=== PATIENT | female | born 1955 | race American Indian/Alaskan Native ===

== ENCOUNTER 2018-10-17 13:30 | Emergency (ER) | payer SELFPAY ==
[2018-10-17 13:55] VITALS: BP 141/80
--- NOTE | 2018-10-17 14:08 | Emergency Department Report ---
Chief Complaint: Abdominal Pain Stated Complaint: GALL BLADDER PAIN Time Seen by Provider: 10/17/18 14:05 - HPI History of Present Illness: pt presents with RUQ pain that began 3 weeks ago feels like squeezing sensation mild nausea, decreased appetite no V/D still has her gallbladder no urinary sx PMHx HTN, DM no allergies to medications [facility] - Exam Vital Signs: Vital Signs 10/17/18 13:52 Temperature 98.7 F Pulse Rate 81 Respiratory 15 Rate Blood Pressure 141/80 [Left] O2 Sat by Pulse 95 Oximetry MSE screening note: Focused history and physical exam performed. Due to findings the following was ordered: UA, labs, US gallbladder ED Disposition for MSE Condition: Stable Instructions: Abdominal Pain (ED)
--- NOTE | 2018-10-17 14:47 | Ultrasound Report ---
ULTRASOUND ABDOMEN LIMITED: TECHNIQUE: Transabdominal ultrasound with color Doppler interrogation. HISTORY: right upper quadrant abdominal pain. COMPARISON: none. FINDINGS: LIVER: The liver parenchyma is slightly echogenic which could represent mild fatty change. No enlargement, focal mass or surface nodularity. BILIARY SYSTEM: Normal. PANCREAS: Normal. RIGHT KIDNEY: Normal. PROXIMAL AORTA: Normal. ASCITES: None. IMPRESSION: Mild fatty change in the liver. No significant change is demonstrated since 09/09/14.
[2018-10-17 15:27] LABS: Basophils # (Auto) 0.1 K/mm3 (0.0-0.1); Basophils % (Auto) 0.8 % (0.0-1.8); Eosinophils # (Auto) 0.1 K/mm3 (0.0-0.4); Eosinophils % (Auto) 2.3 % (0.0-4.3); Hematocrit 41.9 % (30.3-42.9); Hemoglobin 14.2 gm/dl (10.1-14.3); Lymphocytes # (Auto) 3.2 K/mm3 (1.2-5.4); Lymphocytes % (Auto) 49.1 % (13.4-35.0); Mean Corpuscular HGB Conc 34 % (30-34); Mean Corpuscular Volume 86 fl (79-97); Monocytes # (Auto) 0.6 K/mm3 (0.0-0.8); Monocytes % (Auto) 9.3 % (0.0-7.3); Platelet Count 301 K/mm3 (140-440); Red Blood Count 4.86 M/mm3 (3.65-5.03); Red Cell Distribution Width 13.8 % (13.2-15.2)
[2018-10-17 15:57] LABS: Bilirubin,Urine NEG (Negative); Blood,Urine NEG (Negative); Color,Urine Yellow (Yellow); Mucus,Urine FEW /HPF; Protein,Urine <15 mg/dL mg/dL (Negative); Urobilinogen,Urine < 2.0 mg/dL (<2.0)
[2018-10-17 16:08] LABS: Alanine Aminotransferase 12 units/L (7-56); Albumin 3.9 g/dL (3.9-5); BUN/Creatinine Ratio 19; Blood Urea Nitrogen 19 mg/dL (7-17); Calcium 9.8 mg/dL (8.4-10.2); Hemolysis Index 32
[2018-10-17] MEDS ORDERED: MORPHINE IV ONE (16:51)
[2018-10-17] MEDS ORDERED: ZOFRAN IV ONE (16:51)
--- NOTE | 2018-10-17 16:55 | Emergency Department Report ---
ED Abdominal Pain HPI - General Chief Complaint: Abdominal Pain Stated Complaint: GALL BLADDER PAIN Time Seen by Provider: 10/17/18 14:05 Source: patient Mode of arrival: Ambulatory Limitations: No Limitations - History of Present Illness Initial Comments: 63-year-old female with history of diabetes and hypertension presents to ED with right upper quadrant pain 3 weeks. Patient states pain sometimes begins in the epigastric area and wraps around underneath her right breast. Patient reports sharp pains, worse with respirations. Denies any aggravation of pain with eating. Denies nausea or vomiting. Patient reports mild shortness of breath, states the pain sometimes takes her breath away. The patient denies fever or cough. PCP: Dr Adams TREVIÑO Complaint: flank pain -: week(s) (3) Location: RUQ Radiation: epigastric, back Migration to: no migration Severity: moderate Quality: sharp Consistency: constant Improves With: nothing Worsens With: nothing Associated Symptoms: denies: nausea, vomiting, fever - Related Data Previous Rx's Medication Instructions Recorded Last Taken Type Dicyclomine [Bentyl] 20 mg PO QID PRN #20 tablet 10/17/18 Unknown Rx Naproxen [Naprosyn] 500 mg PO BID #20 tablet 10/17/18 Unknown Rx methOCARBAMOL [Robaxin TAB] 500 mg PO Q8HR PRN #20 tablet 10/17/18 Unknown Rx Allergies Allergy/AdvReac Type Severity Reaction Status Date / Time iodine AdvReac Severe Anaphylaxis Verified 10/17/18 17:30 ED Review of Systems ROS: Stated complaint: GALL BLADDER PAIN Other details as noted in HPI Comment: All other systems reviewed and negative Constitutional: denies: chills, fever Respiratory: denies: cough, shortness of breath Cardiovascular: denies: chest pain Gastrointestinal: abdominal pain. denies: nausea, vomiting Musculoskeletal: other (denies led pain or swelling) ED Past Medical Hx - Past Medical History Hx Hypertension: Yes Hx Diabetes: Yes Hx Asthma: Yes - Surgical History Past Surgical History?: No - Social History Smoking Status: Current Every Day Smoker Substance Use Type: None - Medications Home Medications: Home Medications Medication Instructions Recorded Confirmed Last Taken Type Dicyclomine [Bentyl] 20 mg PO QID PRN #20 tablet 10/17/18 Unknown Rx Naproxen [Naprosyn] 500 mg PO BID #20 tablet 10/17/18 Unknown Rx methOCARBAMOL [Robaxin TAB] 500 mg PO Q8HR PRN #20 tablet 10/17/18 Unknown Rx ED Physical Exam - General Limitations: No Limitations General appearance: alert, in no apparent distress - Head Head exam: Present: atraumatic, normocephalic - Eye Eye exam: Present: normal appearance - ENT ENT exam: Present: mucous membranes moist - Neck Neck exam: Present: normal inspection - Respiratory Respiratory exam: Present: normal lung sounds bilaterally. Absent: respiratory distress - Cardiovascular Cardiovascular Exam: Present: regular rate, normal rhythm - GI/Abdominal GI/Abdominal exam: Present: soft, tenderness (mild RUQ). Absent: distended - Extremities Exam Extremities exam: Present: normal inspection. Absent: normal capillary refill, calf tenderness - Neurological Exam Neurological exam: Present: alert, oriented X3 - Psychiatric Psychiatric exam: Present: normal affect, normal mood - Skin Skin exam: Present: warm, dry, intact, normal color ED Course Vital Signs 10/17/18 10/17/18 13:52 16:20 Temperature 98.7 F Pulse Rate 81 Respiratory 15 18 Rate Blood Pressure 141/80 [Left] O2 Sat by Pulse 95 Oximetry ED Medical Decision Making - Lab Data Result diagrams: 10/17/18 14:37 10/17/18 14:37 - Radiology Data Radiology results: report reviewed, image reviewed - Medical Decision Making - RUQ pain x 3 weeks - US neg for gallstones, only shows fatty liver - V/Q scan low probability for PE - CXR negative for infiltrate - pt now states she was moving a dresser prior to onset of pain, maybe pulled a muscle - outpt f/u advised - return precautions given - Differential Diagnosis gallstones, PE, pneumonia, chest wall pain Critical care attestation.: If time is entered above; I have spent that time in minutes in the direct care of this critically ill patient, excluding procedure time. ED Disposition Clinical Impression: Abdominal pain, Chest wall pain Disposition: DC-01 TO HOME OR SELFCARE Is pt being admited?: No Condition: Stable Instructions: Costochondritis (ED), Abdominal Pain (ED) Prescriptions: Dicyclomine [Bentyl] 20 mg PO QID PRN #20 tablet PRN Reason: abdominal pain Naproxen [Naprosyn] 500 mg PO BID #20 tablet methOCARBAMOL [Robaxin TAB] 500 mg PO Q8HR PRN #20 tablet PRN Reason: Muscle Spasm Referrals: PRIMARY CARE, [Referring] - 3-5 Days [facility] [Provider Group] - 3-5 Days Time of Disposition: 19:51
--- NOTE | 2018-10-17 18:39 | XRay Report ---
PROCEDURE: XR CHEST ROUTINE 2V HISTORY: right chest pain FINDINGS: Frontal and lateral views the chest were acquired. The heart is normal in size. The lungs a ppear clear. There is no pneumothorax. There is no consolidative pulmonary infiltrate. IMPRESSION: No active disease in the chest This document is electronically signed by Kevan Gates MD., October 17 2018 06:37:01 PM ET
--- NOTE | 2018-10-17 19:41 | Nuclear Medicine Report ---
PROCEDURE: Nuclear medicine ventilation and perfusion lung scan. TECHNIQUE: Ventilation imaging was done in the posterior projection using 20.1 mCi of xenon-133 gas. Perfusion imaging was done in multiple projections using 4.37 mCi of technetium 99m MAA. HISTORY: pleuritic pain COMPARISONS: Comparison chest radiograph 10/17/2018. FINDINGS: There is fairly homogeneous ventilation of both lungs. There is some trapping of xenon gas at both colby ng bases during the washout phase of the study. The perfusion images are also fairly homogeneous. The re are no mismatched perfusion defects identified. The scan has a very low probability of pulmonary e mbolism. IMPRESSION: Very low probability of pulmonary embolism. This document is electronically signed by Jose Guadalupe Brito MD., October 17 2018 07:40:05 PM ET
== END 2018-10-17 20:13 | disposition home or self-care (01) ==
LOC: ED 13:30
DX: R10.11 Right upper quadrant pain (principal); R07.89 Other chest pain; I10 Essential (primary) hypertension; E11.9 Type 2 diabetes mellitus without complications; J45.909 Unspecified asthma, uncomplicated
CPT/HCPCS: 36415; 71046; 76705; 78582; 80053; 81001; 83690; 85025; 96374; 96375; 99284; A9540; A9558; J2270; J2405

== ENCOUNTER 2019-01-05 08:19 | Emergency (ER) | payer SELFPAY ==
[2019-01-05 09:12] LABS: Hemoglobin 14.9 gm/dl (10.1-14.3); Mean Corpuscular HGB Conc 35 % (30-34); Mean Corpuscular Hemoglobin 30 pg (28-32); Mean Corpuscular Volume 87 fl (79-97); Platelet Count 289 K/mm3 (140-440); Red Blood Count 4.96 M/mm3 (3.65-5.03); Red Cell Distribution Width 13.9 % (13.2-15.2)
[2019-01-05 09:35] LABS: Albumin 4.5 g/dL (3.9-5); Calcium 10.7 mg/dL (8.4-10.2)
[2019-01-05 10:04] LABS: Bilirubin,Urine NEG (Negative); Blood,Urine NEG (Negative); Color,Urine Yellow (Yellow); Protein,Urine <15 mg/dL mg/dL (Negative); Urobilinogen,Urine < 2.0 mg/dL (<2.0)
[2019-01-05] MEDS ORDERED: PEPCID IV ONE (10:06)
[2019-01-05] MEDS ORDERED: CARAFATE PO ONE (10:06)
[2019-01-05] MEDS ORDERED: MORPHINE IV ONE (10:06)
--- NOTE | 2019-01-05 10:08 | Emergency Department Report ---
ED General Adult HPI - General Chief complaint: Abdominal Pain Stated complaint: FLANK PAIN Time Seen by Provider: 01/05/19 09:12 Source: patient, family, RN notes reviewed, old records reviewed Mode of arrival: Ambulatory Limitations: No Limitations - History of Present Illness Initial comments: This is a 63-year-old female. This patient is not known to this provider previously. Her past medical history includes asthma, diabetes, hypertension and chronic abdominal pain. Patient seen at this hospital September 2018, for acute on chronic epigastric and right upper quadrant pain radiating to the back, had extensive workup, including low probability nuclear medicine study, negative x- ray of the chest, an ultrasound of the right upper quadrant demonstrating a chronic fatty liver. This has been redemonstrated since 2014. Today, the patient presents to the ER with a complaint of recurrent epigastric and right upper quadrant pain, that moved to the back. The pain is present for 3 months, but worsened over the past couple days. The pain increases with eating, and decreases with rest. The patient denies DVT, pulmonary embolus risk factors. The patient currently denies headache, neck pain, fever, she denies exertional shortness of breath, endorses cough, and endorses intermittent urinary discomfort, admits to right anterior proximal lateral thigh numbness, and denies arthritis. She also indicates that the pain sometimes moves to her subcentral/sternal region. This has been going on for weeks. There is no vomiting, there is no diaphoresis, there is positive nausea, and there is no exertional shortness of breath. -: Gradual, days(s), week(s), month(s) Location: abdomen Radiation: back Quality: burning, aching Consistency: constant Improves with: rest Worsens with: eating - Related Data Previous Rx's Medication Instructions Recorded Last Taken Type Dicyclomine [Bentyl] 20 mg PO QID PRN #20 tablet 10/17/18 Unknown Rx Famotidine [Pepcid] 20 mg PO BID #30 tablet 01/05/19 Unknown Rx Allergies Allergy/AdvReac Type Severity Reaction Status Date / Time iodine AdvReac Severe Anaphylaxis Verified 01/05/19 08:20 ED Review of Systems ROS: Stated complaint: FLANK PAIN Other details as noted in HPI Constitutional: denies: fever Eyes: denies: eye discharge ENT: denies: epistaxis Respiratory: cough Cardiovascular: denies: syncope Gastrointestinal: abdominal pain, nausea Genitourinary: other Musculoskeletal: back pain Skin: denies: lesions Neurological: weakness Psychiatric: anxiety ED Past Medical Hx - Past Medical History Hx Hypertension: Yes Hx Diabetes: Yes Hx Asthma: Yes Additional medical history: GALL STONES - Surgical History Past Surgical History?: Yes Additional Surgical History: TONSILS RECTAL EYE - Social History Smoking Status: Never Smoker Substance Use Type: None - Medications Home Medications: Home Medications Medication Instructions Recorded Confirmed Last Taken Type Dicyclomine [Bentyl] 20 mg PO QID PRN #20 tablet 10/17/18 Unknown Rx Famotidine [Pepcid] 20 mg PO BID #30 tablet 01/05/19 Unknown Rx ED Physical Exam - General Limitations: No Limitations General appearance: alert, obese - Head Head exam: Present: atraumatic, normocephalic - Eye Eye exam: Present: normal appearance, EOMI - ENT ENT exam: Present: normal exam, normal orophraynx, mucous membranes moist, normal external ear exam - Neck Neck exam: Present: normal inspection, full ROM. Absent: tenderness, meningismus - Respiratory Respiratory exam: Present: normal lung sounds bilaterally. Absent: respiratory distress - Cardiovascular Cardiovascular Exam: Present: regular rate, normal rhythm, normal heart sounds. Absent: bradycardia, tachycardia, irregular rhythm, systolic murmur, diastolic murmur, rubs, gallop - GI/Abdominal GI/Abdominal exam: Present: soft. Absent: distended, tenderness, guarding, rebound, rigid, pulsatile mass - Extremities Exam Extremities exam: Present: normal inspection, full ROM, other (2+ pulses noted in the bilateral upper, lower extremities. Compartments soft. No long bony tenderness. The pelvis is stable.). Absent: pedal edema, joint swelling, calf tenderness - Back Exam Back exam: Present: normal inspection, full ROM. Absent: tenderness, CVA tenderness (R), CVA tenderness (L), paraspinal tenderness, vertebral tenderness - Neurological Exam Neurological exam: Present: alert, oriented X3, normal gait, other (Extraocular movements intact. Tongue midline. No facial droop. Facial sensation intact to light touch in the V1, V2, V3 distribution bilaterally. 5 and 5 strength in 4 extremities.. Sensation is intact to light touch in 4 extremities.). Absent: motor sensory deficit - Psychiatric Psychiatric exam: Present: anxious - Skin Skin exam: Present: warm, dry, intact, normal color. Absent: rash ED Course Vital Signs 01/05/19 01/05/19 01/05/19 08:25 09:06 09:32 Temperature 97.7 F Pulse Rate 76 68 68 Respiratory 20 20 13 Rate Blood Pressure 151/75 Blood Pressure 184/92 [Left] O2 Sat by Pulse 98 Oximetry 01/05/19 01/05/19 01/05/19 09:46 10:00 10:16 Temperature Pulse Rate 75 68 67 Respiratory 20 19 15 Rate Blood Pressure Blood Pressure [Left] O2 Sat by Pulse Oximetry 01/05/19 01/05/19 01/05/19 10:30 13:01 13:23 Temperature Pulse Rate 73 83 Respiratory 13 16 Rate Blood Pressure 160/75 Blood Pressure 139/82 [Left] O2 Sat by Pulse 97 Oximetry - Reevaluation(s) Reevaluation #1: 01/05/19 10:29 Differential diagnosis, including not limited to: GERD, gastritis, hiatal hernia, sphincter of OD dysfunction, biliary dyskinesia, fatty liver, biliary colic, renal colic, pancreatitis, acute coronary syndrome, renal colic, urinary tract infection, allodynia Assessment and plan: 63-year-old female with acute on chronic epigastric to right upper quadrant pain. She is not tachycardic, she is not hypoxic, she is low risk by well's criteria, and endorses no DVT or pulmonary embolism risk factors. Patient was seen for similar symptoms in September of this year. Had extensive workup, including low probability nuclear medicine study, x-ray of the chest which was unremarkable, and right upper quadrant ultrasound which showed a fatty liver. Laboratory studies so far do not corroborate hepatitis, acute coronary syndrome, pericarditis, or myocarditis, or pancreatitis. Unlikely that the patient will have an emergent medical condition at this time. Patient at low risk for major adverse cardiac event as per the heart score. We will treat her symptoms, obtained recurrent x-ray of the chest, right upper quadrant ultrasound, and noncontrast CT scan of the abdomen and pelvis. We will reassess once her data points have resulted. Reevaluation #2: 01/05/19 11:13 Chest x-ray negative. CT scan of the abdomen and pelvis negative. Blood pressure improved. Ultrasound pending. Reevaluation #3: 01/05/19 13:45 Right upper quadrant ultrasound negative for objectively abnormal emergent pathology. Blood pressure improved. Troponin negative 2. EKG unchanged 2, patient appears improved, resting comfortably in stretcher. As per this institution's current protocol, patient low risk by Heart score, unlikely to be acute coronary syndrome, patient at low risk for major adverse cardiac event, outpatient cardiology group will contact patient with outpatient cardiology follow-up appointment. Patient will be discharged with appropriate nonsedating medication, she'll need to follow up with outpatient GI. ED Medical Decision Making - Lab Data Result diagrams: 01/05/19 08:31 01/05/19 08:31 Vital Signs 01/05/19 08:25 Temperature 97.7 F Pulse Rate 76 Respiratory 20 Rate Blood Pressure 184/92 [Left] O2 Sat by Pulse 98 Oximetry Lab Results 01/05/19 01/05/19 01/05/19 Range/Units 08:31 08:31 08:31 WBC 5.9 (4.5-11.0) K/mm3 RBC 4.96 (3.65-5.03) M/mm3 Hgb 14.9 H (10.1-14.3) gm/dl Hct 43.0 H (30.3-42.9) % MCV 87 (79-97) fl MCH 30 (28-32) pg MCHC 35 H (30-34) % RDW 13.9 (13.2-15.2) % Plt Count 289 (140-440) K/mm3 Lymph % (Auto) Aerial Tram Operator Seg Neutrophils % Aerial Tram Operator Sodium 136 L (137-145) mmol/L Potassium 3.7 (3.6-5.0) mmol/L Chloride 94.1 L (98-107) mmol/L Carbon Dioxide 29 (22-30) mmol/L Anion Gap 17 mmol/L BUN 20 H (7-17) mg/dL Creatinine 1.2 (0.7-1.2) mg/dL Estimated GFR 55 ml/min BUN/Creatinine Ratio 17 % Glucose 149 H (65-100) mg/dL Calcium 10.7 H (8.4-10.2) mg/dL Magnesium 2.10 (1.7-2.3) mg/dL Total Bilirubin 0.30 (0.1-1.2) mg/dL AST 14 (5-40) units/L ALT 13 (7-56) units/L Alkaline Phosphatase 116 (35-129) units/L Total Creatine Kinase 124 (30-135) units/L Troponin T < 0.010 (0.00-0.029) ng/mL Total Protein 8.1 (6.3-8.2) g/dL Albumin 4.5 (3.9-5) g/dL Albumin/Globulin Ratio 1.3 % Lipase (13-60) units/L Urine Color (Yellow) Urine Turbidity (Clear) Urine pH (5.0-7.0) Ur Specific [place] (1.003-1.030) Urine Protein (Negative) mg/dL Urine Glucose (UA) (Negative) mg/dL Urine Ketones (Negative) mg/dL Urine Blood (Negative) Urine Nitrite (Negative) Urine Bilirubin (Negative) Urine Urobilinogen (<2.0) mg/dL Ur Leukocyte Esterase (Negative) Urine WBC (Auto) (0.0-6.0) /HPF Urine RBC (Auto) (0.0-6.0) /HPF U Epithel Cells (Auto) (0-13.0) /HPF 01/05/19 01/05/19 Range/Units 08:31 09:37 WBC (4.5-11.0) K/mm3 RBC (3.65-5.03) M/mm3 Hgb (10.1-14.3) gm/dl Hct (30.3-42.9) % MCV (79-97) fl MCH (28-32) pg MCHC (30-34) % RDW (13.2-15.2) % Plt Count (140-440) K/mm3 Lymph % (Auto) Seg Neutrophils % Sodium (137-145) mmol/L Potassium (3.6-5.0) mmol/L Chloride (98-107) mmol/L Carbon Dioxide (22-30) mmol/L Anion Gap mmol/L BUN (7-17) mg/dL Creatinine (0.7-1.2) mg/dL Estimated GFR ml/min BUN/Creatinine Ratio % Glucose (65-100) mg/dL Calcium (8.4-10.2) mg/dL Magnesium (1.7-2.3) mg/dL Total Bilirubin (0.1-1.2) mg/dL AST (5-40) units/L ALT (7-56) units/L Alkaline Phosphatase (35-129) units/L Total Creatine Kinase (30-135) units/L Troponin T (0.00-0.029) ng/mL Total Protein (6.3-8.2) g/dL Albumin (3.9-5) g/dL Albumin/Globulin Ratio % Lipase 29 (13-60) units/L Urine Color Yellow (Yellow) Urine Turbidity Clear (Clear) Urine pH 6.0 (5.0-7.0) Ur Specific [place] 1.019 (1.003-1.030) Urine Protein <15 mg/dl (Negative) mg/dL Urine Glucose (UA) Neg (Negative) mg/dL Urine Ketones Neg (Negative) mg/dL Urine Blood Neg (Negative) Urine Nitrite Neg (Negative) Urine Bilirubin Neg (Negative) Urine Urobilinogen < 2.0 (<2.0) mg/dL Ur Leukocyte Esterase Neg (Negative) Urine WBC (Auto) 1.0 (0.0-6.0) /HPF Urine RBC (Auto) 1.0 (0.0-6.0) /HPF U Epithel Cells (Auto) 6.0 (0-13.0) /HPF - EKG Data -: EKG Interpreted by Nd EKG shows normal: sinus rhythm Rate: normal - EKG Data When compared to previous EKG there are: previous EKG unavailable 01/05/19 10:31 This is a normal sinus, 67 bpm, normal axis, VA interval prolonged, poor R-wave progression, abnormal EKG, no prior for comparison, the EKG is not consistent with ST elevation myocardial infarction. - Radiology Data Radiology results: pending, report reviewed, image reviewed Critical care attestation.: If time is entered above; I have spent that time in minutes in the direct care of this critically ill patient, excluding procedure time. ED Disposition Clinical Impression: Chronic RUQ pain Disposition: DC-01 TO HOME OR SELFCARE Is pt being admited?: No Does the pt Need Aspirin: No Condition: Stable Instructions: Abdominal Pain (ED) Additional Instructions: Avoid consumption of Motrin, ibuprofen, Naprosyn, Aleve. Avoid consumption of alcohol, and heavy, spicy foods. Follow-up with her practice representative within the next 2 weeks. Follow up with a energy auditor within the next 3-5 days. Local cardiology group will be contacting the patient within the next 48 hours to arrange close outpati ent follow-up for patient's epigastric discomfort. Return to the emergency room right away with new, worsening or different symptoms, or symptoms not present on the initial emergency room evaluation. Referrals: EDILMA RAE MD [Primary Care Provider] - 3-5 Days [facility] [Provider Group] - 3-5 Days [facility] [Provider Group] - 3-5 Days
[2019-01-05 10:34] LABS: Basophils % (Manual) 0 % (0.0-1.8); Total Cells Counted 100
[2019-01-05 10:35] LABS: Platelet Estimate Consistent w Auto; RBC Morphology Normal
--- NOTE | 2019-01-05 10:59 | XRay Report ---
CHEST 2 VIEWS INDICATION / CLINICAL INFORMATION: Epigastric and back pain for over one month. COMPARISON: None available. FINDINGS: SUPPORT DEVICES: None. HEART / MEDIASTINUM: The heart size and pulmonary vasculature are normal. There is mild aortic tortuo sity without aneurysm. LUNGS / PLEURA: No significant pulmonary or pleural abnormality. No pneumothorax. ADDITIONAL FINDINGS: No significant additional findings. IMPRESSION: No acute findings. Signer Name: Caleb Mcdonald MD Signed: 01/05/2019 10:54 AM Workstation Name: [id number]
--- NOTE | 2019-01-05 11:10 | Cat Scan Report ---
CT ABDOMEN AND PELVIS WITHOUT CONTRAST HISTORY: Right upper quadrant pain radiating to back COMPARISON: None. TECHNIQUE: Axial CT images were obtained through the abdomen and pelvis without IV contrast. Sagittal and coronal reformatted images. All CT scans at this location are performed using CT dose reduction for ALARA by means of automated exposure control. FINDINGS: CT ABDOMEN: Lung Bases: Clear. Liver: No significant abnormality. Biliary: No significant abnormality. Spleen: No significant abnormality. Unenlarged. Pancreas: No significant abnormality. Adrenals: No significant abnormality. Kidneys: No significant abnormality. Lymphatics: No lymphadenopathy. Vasculature: No significant abnormality. Bowel/Peritoneum: No significant abnormality. No free air. No free fluid. CT PELVIS: : No significant abnormality. Osseous Structures: No significant abnormality. Additional Findings: None IMPRESSION: No significant abnormality. Signer Name: Joseph López Jr, MD Signed: 01/05/2019 11:05 AM Workstation Name: [id number]
--- NOTE | 2019-01-05 13:16 | Ultrasound Report ---
ULTRASOUND ABDOMEN, LIMITED (RIGHT UPPER QUADRANT) INDICATION / CLINICAL INFORMATION: ruq pain rad to back. COMPARISON: Ultrasound dated 10/17/18. CT dated 01/05/19 FINDINGS: PANCREAS: Visualized portion shows no significant abnormality. LIVER: Liver appears heterogeneous and echogenic characteristic of any infiltration. GALLBLADDER: No significant abnormality. BILE DUCTS: No significant abnormality. Common bile duct measures 2.4 mm. FREE FLUID: None. ADDITIONAL FINDINGS: Visualized portions of the right kidney appear normal. IMPRESSION: 1. No acute sonographic abnormality of the right upper quadrant. 2. Possible mild hepatic steatosis. Signer Name: Brandi Aldridge MD Signed: 01/05/2019 1:11 PM Workstation Name: [id number]
[2019-01-05 13:26] VITALS: BP 139/82
[2019-01-05] MEDS ORDERED: BENTYL PO ONE (14:38)
[2019-01-05] MEDS ORDERED: BENTYL ONE (14:39)
== END 2019-01-05 14:41 | disposition home or self-care (01) ==
LOC: ED 08:19
DX: R10.11 Right upper quadrant pain (principal); G89.29 Other chronic pain; I10 Essential (primary) hypertension; E11.9 Type 2 diabetes mellitus without complications; J45.909 Unspecified asthma, uncomplicated; Z91.09 Other allergy status, other than to drugs and biological substances
CPT/HCPCS: 36415; 71046; 74176; 76705; 80053; 81001; 82550; 83690; 83735; 84484; 85007; 85025; 93005; 93010; 99284; J2270

== ENCOUNTER 2019-06-07 10:54 | Emergency (ER) | payer SELFPAY ==
[2019-06-07 11:10] VITALS: BP 109/82
[2019-06-07] MEDS ORDERED: PANTOPRAZOLE 40 MG TAB PO ONE (11:52)
[2019-06-07] MEDS ORDERED: LIDOCAINE VISCOUS 2% 15 ML ORAL LIQD PO ONE (11:53)
[2019-06-07] MEDS ORDERED: ALUM-MAG HYDROXIDE-SIMETHICONE 200-200-20MG/5ML ORAL LIQD 30 ML PO ONE (11:53)
--- NOTE | 2019-06-07 11:56 | Emergency Department Report ---
HPI - General Chief Complaint: Abdominal Pain Time Seen by Provider: 06/07/19 11:32 - HPI HPI: Room 9 The patient is a 64-year-old female presenting with a chief complaint of abdominal pain. The patient states she's had abdominal pain intermittently for the past 9 months. Patient states she's been to the hospital multiple times but has not yet been given a diagnosis. The patient states she is having trouble getting authorization/coverage to see a loft rigger perform an endoscopy and/or colonoscopy. The patient again came to the emergency room today for this abdominal pain which she describes as stabbing in nature and located in the ri t upper quadrant, midepigastric and right lower quadrants. Patient is to nausea but denies vomiting or diarrhea. Patient notices an increase in pain after eating. Location: [See above] Duration: [See above] Quality: [See above] Severity: [See above] Timing: [See above] Context: [See above] Modifying factors: [See above] Associated signs and symptoms: [see above] ED Past Medical Hx - Past Medical History Hx Hypertension: Yes Hx Diabetes: Yes Hx Asthma: Yes Additional medical history: GALL STONES - Surgical History Additional Surgical History: TONSILS RECTAL EYE - Family History Family history: no significant - Social History Smoking Status: Current Every Day Smoker (1/2 pack per day) Substance Use Type: Alcohol (occasional) - Medications Home Medications: Home Medications Medication Instructions Recorded Confirmed Last Taken Type Dicyclomine [Bentyl] 20 mg PO QID PRN #20 tablet 10/17/18 Unknown Rx Famotidine [Pepcid] 20 mg PO BID #30 tablet 01/05/19 Unknown Rx HYDROcodone/APAP 5-325 [[place] 1 - 2 each PO Q6HR PRN #20 tablet 06/07/19 Unkn own Rx 5/325] Pantoprazole [Protonix] 40 mg PO BID #60 tablet 06/07/19 Unknown Rx ED Review of Systems ROS: Stated complaint: GI STOMACH PAIN/DOC ORDERED Other details as noted in HPI Constitutional: no symptoms reported Eyes: denies: eye pain Respiratory: no symptoms reported Cardiovascular: denies: chest pain Endocrine: no symptoms reported Gastrointestinal: abdominal pain, nausea. denies: vomiting Genitourinary: denies: dysuria Musculoskeletal: back pain Neurological: denies: headache Physical Exam - Physical Exam Vital Signs: Vital Signs 06/07/19 11:06 Temperature 98.2 F Pulse Rate 88 Respiratory 20 Rate Blood Pressure 109/82 O2 Sat by Pulse 99 Oximetry Physical Exam: GENERAL: The patient is well-developed well-nourished female lying on stretcher appearing to be in mild discomfort. [] HEENT: Normocephalic. Atraumatic. Extraocular motions are intact. Patient has moist mucous membranes. NECK: Supple. Trachea midline CHEST/LUNGS: Clear to auscultation. There is no respiratory distress noted. HEART/CARDIOVASCULAR: Regular. There is no tachycardia. There is no gallop rub or murmur. ABDOMEN: Abdomen is soft, with mild discomfort to palpation in the right upper quadrant, right lower quadrant and midepigastric region. There is no rebound or guarding. Patient has normal bowel sounds. There is no abdominal distention. SKIN: There is no rash. There is no edema. There is no diaphoresis. NEURO: The patient is awake, alert, and oriented. The patient is cooperative. The patient has normal speech MUSCULOSKELETAL: There is no evidence of acute injury. ED Course Vital Signs 06/07/19 11:06 Temperature 98.2 F Pulse Rate 88 Respiratory 20 Rate Blood Pressure 109/82 O2 Sat by Pulse 99 Oximetry ED Medical Decision Making - Lab Data Result diagrams: 06/07/19 12:45 06/07/19 12:45 Laboratory Tests 06/07/19 06/07/19 06/07/19 12:34 12:45 12:45 WBC 6.5 RBC 5.00 Hgb 14.7 H Hct 42.1 MCV 84 MCH 30 MCHC 35 H RDW 14.2 Plt Count 305 Lymph % (Auto) 44.8 H [place] % (Auto) 7.1 Eos % (Auto) 1.4 Baso % (Auto) 0.5 Lymph # 2.9 [place] # 0.5 Eos # 0.1 Baso # 0.0 Seg Neutrophils % 46.2 Seg Neutrophils # 3.0 Sodium 140 Potassium 3.5 L Chloride 99.3 Carbon Dioxide 27 Anion Gap 17 BUN 17 Creatinine 0.9 Estimated GFR > 60 BUN/Creatinine Ratio 19 Glucose 83 Calcium 9.8 Total Bilirubin 0.30 AST 16 ALT 13 Alkaline Phosphatase 110 Total Protein 8.3 H Albumin 4.5 Albumin/Globulin Ratio 1.2 Lipase Urine Color Straw Urine Turbidity Clear Urine pH 8.0 H Ur Specific [place] 1.014 Urine Protein <15 mg/dl Urine Glucose (UA) Neg Urine Ketones Neg Urine Blood Neg Urine Nitrite Neg Urine Bilirubin Neg Urine Urobilinogen < 2.0 Ur Leukocyte Esterase Mod Urine WBC (Auto) 1.0 Urine RBC (Auto) 4.0 U Epithel Cells (Auto) 7.0 Urine Mucus Few 06/07/19 12:45 WBC RBC Hgb Hct MCV MCH MCHC RDW Plt Count Lymph % (Auto) [place] % (Auto) Eos % (Auto) Baso % (Auto) Lymph # [place] # Eos # Baso # Seg Neutrophils % Seg Neutrophils # Sodium Potassium Chloride Carbon Dioxide Anion Gap BUN Creatinine Estimated GFR BUN/Creatinine Ratio Glucose Calcium Total Bilirubin AST ALT Alkaline Phosphatase Total Protein Albumin Albumin/Globulin Ratio Lipase 21 Urine Color Urine Turbidity Urine pH Ur Specific [place] Urine Protein Urine Glucose (UA) Urine Ketones Urine Blood Urine Nitrite Urine Bilirubin Urine Urobilinogen Ur Leukocyte Esterase Urine WBC (Auto) Urine RBC (Auto) U Epithel Cells (Auto) Urine Mucus - Radiology Data Radiology results: report reviewed (CT abdomen and pelvis), image reviewed (CT abdomen and pelvis) [address] [address] Cat Scan Report Signed Patient: FRANK PETTY MR#: [id number] : 1955 Acct:[id number] Age/Sex: 64 / F ADM Date: 06/07/19 Loc: ED Attending Dr: Ordering Physician: FRANSICO SCHWARZ MD Date of Service: 06/07/19 Procedure(s): CT abdomen pelvis wo con Accession Number(s): [id number] cc: FRANSICO SCHWARZ MD CT ABDOMEN AND PELVIS WITHOUT CONTRAST HISTORY: right-sided abdominal pain. COMPARISON: CT abdomen/pelvis from 01/05/2019 TECHNIQUE: CT images of the abdomen and pelvis were obtained without administration of intravenous contrast. All CT scans at this location are performed using CT dose reduction for ALARA by means of automated exposure control. FINDINGS: Lungs/bones: Lung bases are clear. 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 Abdomen/pelvis: There is no radiopaque urinary stone disease, mass, cyst, or hydronephrosis. No ureteral stone. Likewise no bladder stone identified. The liver, gallbladder, spleen, pancreas, and proximal GI tract appear unremarkable. There is stable mild bilateral adrenal thickening/nodularity. The urinary bladder is unremarkable. Uterus is normal. No significant pelvic free fluid identified. There is colonic diverticulosis with no acute inflammatory change identified. The appendix is normal. Terminal ileum appears unremarkable as well. IMPRESSION: 1. No acute abnormality identified. Signer Name: John Lopez MD Signed: 06/07/2019 12:38 PM Workstation Name: [id number] Transcribed By: GIANNA Dictated By: John Lopez MD Electronically Authenticated By: John Lopez MD Signed Date/Time: 06/07/19 1238 DD/ 1235 TD/TT: - Differential Diagnosis peptic ulcer disease, cholelithiasis, gastritis Critical care attestation.: If time is entered above; I have spent that time in minutes in the direct care of this critically ill patient, excluding procedure time. ED Disposition Clinical Impression: Abdominal pain Disposition: DC- TO HOME OR SELFCARE Is pt being admited?: No Does the pt Need Aspirin: No Condition: Stable Instructions: Abdominal Pain (ED) Additional Instructions: Return to the emergency department should you develop worsening symptoms, inability to tolerate food or liquids, high fever or any other concerns Prescriptions: HYDROcodone/APAP 5-325 [[place] 5/325] 1 - 2 each PO Q6HR PRN #20 tablet PRN Reason: Pain Pantoprazole [Protonix] 40 mg PO BID #60 tablet Referrals: DOREEN SMITH MD [Staff Physician] - [facility] (Dr. Smith is a loft rigger. Please follow-up with him for further evaluation) Time of Disposition: 14:25
--- NOTE | 2019-06-07 12:42 | Cat Scan Report ---
CT ABDOMEN AND PELVIS WITHOUT CONTRAST HISTORY: right-sided abdominal pain. COMPARISON: CT abdomen/pelvis from 01/05/2019 TECHNIQUE: CT images of the abdomen and pelvis were obtained without administration of intravenous co ntrast. All CT scans at this location are performed using CT dose reduction for ALARA by means of au tomated exposure control. FINDINGS: Lungs/bones: Lung bases are clear. 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 Abdomen/pelvis: There is no radiopaque urinary stone disease, mass, cyst, or hydronephrosis. No uret eral stone. Likewise no bladder stone identified. The liver, gallbladder, spleen, pancreas, and proximal GI tract appear unremarkable. There is stable mild bilateral adrenal thickening/nodularity. The urinary bladder is unremarkable. Uterus is normal. No significant pelvic free fluid identified. T here is colonic diverticulosis with no acute inflammatory change identified. The appendix is normal. Terminal ileum appears unremarkable as well. IMPRESSION: 1. No acute abnormality identified. Signer Name: John Lopez MD Signed: 06/07/2019 12:38 PM Workstation Name: [id number]
[2019-06-07 12:50] LABS: Bilirubin,Urine NEG (Negative); Blood,Urine NEG (Negative); Color,Urine Straw (Yellow); Mucus,Urine FEW /HPF; Protein,Urine <15 mg/dL mg/dL (Negative); Urobilinogen,Urine < 2.0 mg/dL (<2.0)
[2019-06-07 13:14] LABS: Basophils % (Auto) 0.5 % (0.0-1.8); Eosinophils # (Auto) 0.1 K/mm3 (0.0-0.4); Eosinophils % (Auto) 1.4 % (0.0-4.3); Hematocrit 42.1 % (30.3-42.9); Hemoglobin 14.7 gm/dl (10.1-14.3); Lymphocytes # (Auto) 2.9 K/mm3 (1.2-5.4); Lymphocytes % (Auto) 44.8 % (13.4-35.0); Mean Corpuscular HGB Conc 35 % (30-34); Mean Corpuscular Volume 84 fl (79-97); Monocytes # (Auto) 0.5 K/mm3 (0.0-0.8); Monocytes % (Auto) 7.1 % (0.0-7.3); Platelet Count 305 K/mm3 (140-440); Red Cell Distribution Width 14.2 % (13.2-15.2)
[2019-06-07 13:43] LABS: Alanine Aminotransferase 13 units/L (7-56); Albumin 4.5 g/dL (3.9-5); BUN/Creatinine Ratio 19; Blood Urea Nitrogen 17 mg/dL (7-17); Calcium 9.8 mg/dL (8.4-10.2); Hemolysis Index 14
== END 2019-06-07 15:06 | disposition home or self-care (01) ==
LOC: ED 10:54
DX: R10.9 Unspecified abdominal pain (principal); I10 Essential (primary) hypertension; E11.9 Type 2 diabetes mellitus without complications; J45.909 Unspecified asthma, uncomplicated; F17.200 Nicotine dependence, unspecified, uncomplicated; F10.10 Alcohol abuse, uncomplicated; Z79.899 Other long term (current) drug therapy; Z91.041 Radiographic dye allergy status
CPT/HCPCS: 36415; 74176; 80053; 81001; 83690; 85025

== ENCOUNTER 2019-07-02 10:24 | Emergency (ER) | payer SELFPAY ==
[2019-07-02 11:59] VITALS: BP 139/76
--- NOTE | 2019-07-02 12:03 | Emergency Department Report ---
Blank Doc - Documentation Documentation: 64-year-old female that presents with worsening abdominal pain and n/v. Was s een by different providers for the past year. Stated symptoms are worsening. This initial assessment/diagnostic orders/clinical plan/treatment(s) is/are subject to change based on patient's health status, clinical progression and re- assessment by fellow clinical providers in the ED. Further treatment and workup at subsequent clinical providers discretion. Patient/guardians urged not to elope from the ED as their condition may be serious if not clinically assessed and managed. Initial orders include: 1- Patient sent to [facility] for further evaluation and treatment 2- labs 3- UA
== END 2019-07-02 12:30 | disposition left against medical advice (07) ==
LOC: ED 10:24
DX: R10.9 Unspecified abdominal pain (principal); Z53.21 Procedure and treatment not carried out due to patient leaving prior to being seen by health care provider